=== PATIENT | female | born 1960 | race Caucasian/White ===

== ENCOUNTER 2018-02-04 05:08 | Day surgery (SDC) | payer OTHER ==
[~2018-02-04] VITALS: Ht 165.1 cm; Wt 127.0 kg
[~2018-02-04 05:08] MED LIST: ADVIL200 MG PO; KLONOPIN0.5 M1 PO; PROTONIX40 MG PO; TUMS500 MG PO; WELLBUTRIN75 MG PO; ZOLOFT100 MG PO; ZOLOFT50 MG PO
[2018-02-04] MEDS ORDERED: [UNRECOGNIZED DRUG - OTHER] PO (06:07)
[2018-02-04 06:14] VITALS: BP 128/73
[2018-02-04 06:19] LABS: BASOPHIL (%) 0.4 % (0-1); EOSINOPHIL (%) 2.2 % (0-5); EOSINOPHIL COUNT 0.2 K/uL (0-0.3); HEMATOCRIT 41.7 % (36.0-46.0); HEMOGLOBIN 13.6 G/DL (11.9-15.5); IMMATURE GRANULOCYTE (%) 0.4 % (0.0-0.7); LYMPHOCYTE (%) 35.7 % (15-42); LYMPHOCYTE COUNT 2.9 K/uL (1.0-2.8); MCHC 32.6 G/DL (30.0-36.0); MONOCYTE (%) 4.5 % (3-12); MONOCYTE COUNT 0.4 K/uL (0-0.8); NEUTROPHIL (%) 56.8 % (45-76); NEUTROPHIL COUNT 4.6 K/uL (1.8-6.4); PLATELET COUNT 257 K/uL (156-360); RBC DIS.WIDTH-CV 14.1 % (11.8-14.6); RBC DIS.WIDTH-SD 49.5 % (39-53); RED BLOOD COUNT 4.39 M/uL (3.80-5.20); WHITE BLOOD COUNT 8.1 K/uL (4.1-10.2)
[2018-02-04] MEDS ORDERED: MOTRIN600 MG PO (08:56)
[2018-02-04 10:45] VITALS: BP 112/63
[2018-02-04 11:50] VITALS: BP 122/54
== END 2018-02-04 12:15 | disposition home or self-care (01) ==
LOC: SDC 05:08
PROVIDERS: Obstetrics & Gynecology
DX: N84.0 Polyp of corpus uteri (principal); N95.0 Postmenopausal bleeding; E66.01 Morbid (severe) obesity due to excess calories; Z68.42 Body mass index [BMI] 45.0-49.9, adult; J44.9 Chronic obstructive pulmonary disease, unspecified; K21.9 Gastro-esophageal reflux disease without esophagitis; Z87.891 Personal history of nicotine dependence
CPT/HCPCS: 81025; 85025; 86850; 86900; 86901; 88305; J0131; J0330; J1100; J2250; J2405; J3010; Q0175; S0020